=== PATIENT | male | born 1980 | race Caucasian/White ===

== ENCOUNTER 2019-01-18 06:32 | Emergency (ER) | payer BC ==
[~2019-01-18] VITALS: Ht 177.8 cm; Wt 113.6 kg
[2019-01-18 06:49] VITALS: Ht 177.8 cm; Wt 113.6 kg
[2019-01-18] MEDS ORDERED: ONDANSETRON 4 MG INJ IV STA ×2 (07:19→10:14)
[2019-01-18] MEDS ORDERED: KETOROLAC 15 MG INJ IV STA (07:19)
[2019-01-18] MEDS ORDERED: morphine 4 MG/ML VIAL IV STA ×2 (07:43→10:14)
--- NOTE | 2019-01-18 09:23 | ERD ---
ER Documentation Chief Complaint Chief Complaint c/o upper abd pain radiating to back x4 hours [employer]. Hx: Gallstones HPI Is a 39-year-old male who presents for evaluation of upper abdominal pain with radiation to the back for last 4 hours. He has a history of gallstones, he was evaluated here in October 2018, at that time he had a CT that was concerning for signs of acute cholecystitis, he had been evaluated as an outpatient at that [facility], and had been discharged on ciprofloxacin. He presents today for recurrent pain, he denies fever, he denies chest pain or shortness of breath. ROS All systems reviewed and are negative except as per history of present illness. Medications Home Meds Active Scripts Hydrocodone/Acetaminophen ([place] 10-325 Tablet) 1 Each Tablet, 1 TAB PO Q6H PRN for PAIN, #16 TAB Prov:ILYA MARION DO 11/10/18 Dicyclomine HCl (Dicyclomine HCl) 10 Mg Capsule, 20 MG PO TID PRN for ABDOMINAL CRAMPING, #20 CAP Prov:ILYA MARION DO 11/10/18 Ciprofloxacin Hcl* (Ciprofloxacin Hcl*) 500 Mg Tablet, 500 MG PO BID for 7 Days, TAB Prov:YOLIE MARIONS Ar DO 11/10/18 Allergies Allergies: Coded Allergies: No Known Drug Allergies (Verified Allergy, Unknown, 01/18/19) PMhx/Soc Medical and Surgical Hx: pt denies Medical Hx History of Surgery: Yes (Appi) Hx Alcohol Use: Yes (social) Hx Substance Use: No Hx Tobacco Use: No Smoking Status: Never smoker Physical Exam Vitals Vital Signs Date Temp Pulse Resp B/P (MAP) Pulse Ox O2 O2 Flow FiO2 Time Delivery Rate 01/18/19 98.1 59 20 154/98 100 Room Air 09:44 (116) 01/18/19 97.6 57 20 164/89 98 06:49 (114) Physical Exam Const: No acute distress Head: Atraumatic Eyes: Normal Conjunctiva ENT: Normal External Ears, Nose and Mouth. Neck: Full range of motion. No meningismus. Resp: Clear to auscultation bilaterally Cardio: Regular rate and rhythm, no murmurs Abd: Soft, non tender, non distended, there is epigastric tenderness, there is no rebound or guarding. Normal bowel sounds Skin: No petechiae or rashes Back: No midline or flank tenderness Ext: No cyanosis, or edema Neur: Awake and alert Psych: Normal Mood and Affect Result Diagram: 01/18/1928 01/18/1928 Results 24 hrs Laboratory Tests Test 01/18/19 07:28 01/18/19 07:43 White Blood Count 7.5 10^3/ul Red Blood Count 5.45 10^6/ul Hemoglobin 15.8 g/dl Hematocrit 46.2 % Mean Corpuscular Volume 84.8 fl Mean Corpuscular Hemoglobin 29.0 pg Mean Corpuscular Hemoglobin Concent 34.2 g/dl Red Cell Distribution Width 12.0 % Platelet Count 320 10^3/UL Mean Platelet Volume 9.6 fl Immature Granulocytes % 0.800 % Neutrophils % 58.2 % Lymphocytes % 31.5 % Monocytes % 7.9 % Eosinophils % 1.1 % Basophils % 0.5 % Nucleated Red Blood Cells % 0.0 /100WBC Immature Granulocytes # 0.060 10^3/ul Neutrophils # 4.3 10^3/ul Lymphocytes # 2.4 10^3/ul Monocytes # 0.6 10^3/ul Eosinophils # 0.1 10^3/ul Basophils # 0.0 10^3/ul Nucleated Red Blood Cells # 0.0 10^3/ul Prothrombin Time 11.8 Sec Prothrombin Time Ratio 0.9 INR International Normalized Ratio 0.86 Sodium Level 144 mmol/L Potassium Level 3.7 mmol/L Chloride Level 103 mmol/L Carbon Dioxide Level 30 mmol/L Anion Gap 11 Blood Urea Nitrogen 16 mg/dl Creatinine 0.75 mg/dl Est Glomerular Filtrat Rate mL/min > 60 mL/min Glucose Level 155 mg/dl Calcium Level 8.8 mg/dl Total Bilirubin 0.4 mg/dl Direct Bilirubin 0.00 mg/dl Indirect Bilirubin 0.4 mg/dl Aspartate Amino Transf (AST/SGOT) 28 IU/L Alanine Aminotransferase (ALT/SGPT) 71 IU/L Alkaline Phosphatase 71 IU/L Troponin I < 0.012 ng/ml Total Protein 8.0 g/dl Albumin 4.7 g/dl Globulin 3.30 g/dl Albumin/Globulin Ratio 1.42 Lipase 31 U/L Bedside Urine pH (LAB) 7.0 Bedside Urine Protein (LAB) 1+ Bedside Urine Glucose (UA) Negative Bedside Urine Ketones (LAB) Negative Bedside Urine Blood Trace-lysed Bedside Urine Nitrite (LAB) Negative Bedside Urine Leukocyte Esterase (L Negative Current Medications Medications Dose Sig/Yolanda Start Time Status Last (Trade) Ordered Route PRN Stop Time Admin Dose Reason Admin Ondansetron 4 mg ONCE STAT 01/18/19 DC 01/18/19 HCl (Zofran IV 07:19 07:23 Inj) 01/18/19 07:20 Ketorolac 15 mg ONCE STAT 01/18/19 DC 01/18/19 Tromethamine IV 07:19 07:24 (Toradol) 01/18/19 07:20 Morphine 4 mg ONCE STAT 01/18/19 DC 01/18/19 Sulfate IV 07:43 07:50 (morphine) 01/18/19 07:48 Procedures/MDM This 39-year-old male who presents for evaluation of abdominal pain. He has a prior history of acute cholecystitis, which was treated as an outpatient, he presents today for recurrent pain, his labs are otherwise unremarkable, his u ltrasound today actually showed no evidence of acute cholecystitis, and his LFTs have actually improved. His CT showed some possibility of gallstones but actually appears improved from prior CT. I discussed findings with patient, I presented options to him, including inpatient evaluation, versus outpatient surgical evaluation, the patient stated that he did not wish to have surgery, and would like to attempt conservative management. He does state that he has not been adhering to a healthy diet, but appeared motivated to do so, additionally he plans to follow-up outpatient with a general surgeon. Return precautions were discussed including worsening abdominal pain fever, or any other worsening symptoms. Repeat serial exam, patient abdominal pain had improved, at discharge she was in no distress. Departure Diagnosis: Primary Impression: Abdominal pain Abdominal location: unspecified location Qualified Codes: R10.9 - Unspecified abdominal pain Additional Impression: Gallstones Condition: KRIS Oliveira MD Jan 18, 2019 09:23
[2019-01-18 12:57] VITALS: BP 142/85; PULSE 60; RESP 16
== END 2019-01-18 13:00 | disposition home or self-care (01) ==
LOC: MERGE 06:32 → E/R 06:32
DX: K80.20 Calculus of gallbladder without cholecystitis without obstruction (principal)
CPT/HCPCS: 36415; 74176; 76705; 80053; 81003; 83690; 84484; 85025; 85610; 93005; 96374; 96375; 96376; 99285; J1885; J2270; J2405